=== PATIENT | female | born 1980 | race Caucasian/White ===

== ENCOUNTER 2017-06-20 16:29 | Emergency (ER) | payer SELFPAY ==
[2017-06-20] MEDS ORDERED: HYDROmorphone 1 MG/ML Syringe IVPUSH ONE (17:23)
[2017-06-20] MEDS ORDERED: Sodium Chloride 0.9% 10 ML Syringe FLUSH PRN (17:23)
[2017-06-20] MEDS ORDERED: Iopamidol 612 MG/ML 100 ML Bottle IVPUSH ONE (17:31)
[2017-06-20] MEDS ORDERED: Sodium Chloride 0.9% 10 ML Syringe FLUSH ONE (17:31)
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
--- NOTE | 2017-06-20 18:18 | CT ---
Head CT Technique: Multiple axial sections through the brain were obtained. Intravenous contrast was not utilized. Comparison: No previous intracranial imaging. Findings: Ventricles along with basal cisterns and sulci over the convexities appear within normal limits for the patient's age. No abnormal parenchymal densities are seen. No evidence of intracranial hemorrhage or mass effect is seen. Bone window settings were reviewed which shows the visualized sinuses to appear clear. No acute calvarial abnormality is seen. Impression: 1. Nothing acute is appreciated on noncontrast head CT exam. Diagnostic code #1
--- NOTE | 2017-06-20 18:22 | CT ---
CT cervical spine Technique: Multiple axial sections were obtained from above C1 inferiorly to the top of T2. Reconstructed sagittal and coronal images were reviewed. Comparison: No previous study. Findings: Mild disc space narrowing is noted at C5-C6. Moderate disc space narrowing is noted at C6-C7. Anterior osteophytes with mild posterior osteophytes are seen at both these levels. Well-corticated bony density is seen off the right posterior arch of C2 which is felt to be normal variant. No fracture is seen within the cervical spine. No bony central or bony neural foraminal stenosis is seen. Slight kyphosis is seen of the cervical spine which is likely due to slight degenerative change. No abnormal subluxation is seen. Minimal degenerative change within the uncovertebral joints is seen at C5-C6 and C6-C7. Impression: 1. Mild degenerative change as noted above. 2. Nothing acute is appreciated on CT study of the cervical spine. Diagnostic code #2
--- NOTE | 2017-06-20 18:27 | CT ---
Addendum: Body of the report on chest CT states that there is a small low-density finding within the right lobe of the liver measuring 7 mm. This is incorrect and the word liver should be replaced by thyroid gland. Also not mentioned in the report on the abdomen is a low density area next to the ligamentum teres fissure within the liver which is most likely due to incidental fat. --- Addendum1 above dictated on [06/22/2017 12:07] by [Buddy Farias Hilton J.] --- --- Addendum1 above signed on [06/22/2017 12:10] by [Buddy Farias, Eleno Felder] --- --- Original report below dictated on [06/20/2017 18:23] by [Buddy Farias Hilton J.] --- --- Original report below signed on [06/20/2017 18:24] by [Buddy Farias Hilton J.] --- CT chest Technique: Multiple axial sections were obtained through the chest. Intravenous contrast was utilized. Comparison: No prior chest imaging. Findings: Small low-density finding is seen within the right lobe of the liver measuring 7 mm. Mediastinum and hilar regions appear within normal limits. No pericardial thickening is seen. Lungs are clear with no abnormal parenchymal densities being seen. No pleural effusions or pneumothorax is identified. Bone window settings were reviewed which shows no discrete osseous abnormality. Impression: 1. Small abnormality within the right lobe of the thyroid gland. Nonemergent thyroid ultrasound could be considered to further evaluate. 2. No additional abnormality is identified on CT study of the chest. Diagnostic code #3 CT abdomen and pelvis Technique: Multiple axial sections were obtained from above the dome of the diaphragm inferiorly through the pubic symphysis. Intravenous contrast was utilized. No oral contrast has been given. Comparison: No previous abdominal imaging. Findings: Liver shows no focal parenchymal abnormality. Spleen appears within normal limits. Low-density lesion is identified with layering calcifications within the left kidney which is felt to be benign. This finding measures about 3.3 cm in size. Kidneys otherwise appear within normal limits. Adrenal glands show no nodule. Pancreas is within normal limits. Aorta shows no aneurysmal dilatation. No retroperitoneal adenopathy or mesenteric abnormalities are seen. No pelvic mass or adenopathy is seen. Delayed images were obtained through the abdomen and pelvis which shows contrast excretion into the ureters and bladder. No extravasation of contrast is identified. No free fluid or inflammatory change is identified. Appendix is seen which is normal. Bone window settings were reviewed which shows disc space narrowing at L5-S1. No acute bony abnormality is seen. Impression: 1. Findings which are felt to be incidental as described above. No acute abnormality is appreciated on CT study of the abdomen and pelvis. Diagnostic code #2 --- Addendum1 signed ---
[2017-06-20] MEDS ORDERED: Ketorolac 30 MG/ML SDV IVPUSH ONE (19:50)
[2017-06-20] MEDS ORDERED: Acetaminophen/oxyCODONE 325-5 MG Tab PO PRN (19:55)
[2017-06-20] MEDS ORDERED: Nicotine 21 MG/24 Hr Patch TRDERM ONE (22:54)
--- NOTE | 2017-06-21 11:30 | CR ---
Left knee: AP and lateral views of the left knee were obtained as well as bilateral sunrise patellar views. Both patellofemoral joints appear within normal limits. No joint effusion is seen on the left side. Medial and lateral joint compartments are maintained in height. No acute fracture or other abnormality is seen. Impression: 1. No abnormality is identified on left knee exam. Diagnostic code #1
--- NOTE | 2017-06-21 11:30 | CR ---
Right knee: AP and lateral views of the right knee were obtained. No joint effusion is seen. Medial and lateral joint compartments are maintained in height. No fracture or other abnormality is seen. Small area of cortical thickening seen within the posterior proximal right tibia believed to be benign. Impression: 1. Incidental finding. Nothing acute is seen. Diagnostic code #2
== END 2017-06-20 21:24 | disposition home or self-care (01) ==
LOC: JD.ED 16:29 → EEVIPCON 16:29 → JD.ED 21:22
DX: S80.01XA Contusion of right knee, initial encounter (principal); S80.12XA Contusion of left lower leg, initial encounter; S40.022A Contusion of left upper arm, initial encounter; S40.021A Contusion of right upper arm, initial encounter; S00.83XA Contusion of other part of head, initial encounter; S80.212A Abrasion, left knee, initial encounter; S00.511A Abrasion of lip, initial encounter; R10.32 Left lower quadrant pain; F17.210 Nicotine dependence, cigarettes, uncomplicated; Y04.0XXA Assault by unarmed brawl or fight, initial encounter
CPT/HCPCS: 36415; 70450; 71260; 72125; 73562; 74177; 80053; 80306; 81001; 84703; 85025; 96374; 96375; 99285; G0480; J1170; J1885; J7050; Q9967; 99284

== ENCOUNTER 2017-06-20 22:58 | Observation (INO) | payer SELFPAY ==
[2017-06-20] MEDS ORDERED: Nicotine 21 MG/24 Hr Patch TRDERM ONE (22:59)
[2017-06-20] MEDS ORDERED: Sodium Chloride 0.9% 10 ML Syringe FLUSH PRN (23:01)
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
[2017-06-20] MEDS: LORazepam 2 MG/ML SDV IVPUSH PRN (23:36)
[2017-06-20] MEDS: Ketorolac 30 MG/ML SDV IVPUSH PRN (23:38)
[2017-06-21] MEDS: Ondansetron 4 MG/2 ML SDV IVPUSH PRN ×2 (03:04→17:05)
[2017-06-21] MEDS: Ketorolac 30 MG/ML SDV IVPUSH PRN (05:20)
[2017-06-21] MEDS ORDERED: Morphine 2 MG/ML Syringe IVPUSH ONE (08:48)
[2017-06-21] MEDS ORDERED: Morphine 2 MG/ML Syringe ONE (08:59)
[2017-06-21] MEDS ORDERED: Pneumococcal Polyvalent-23 Vaccine 0.5 ML SDV SUBCUT ONE (09:00)
[2017-06-21] MEDS ORDERED: FLU Vacc QS 2017-18 (6mos UP)/PF 60 MCG/0.5 ML Syringe IM ONE (10:00)
[2017-06-21] MEDS: Ketorolac 30 MG/ML SDV IVPUSH SCH ×3 (11:49→23:52)
[2017-06-21] MEDS: LORazepam 2 MG/ML SDV IVPUSH PRN ×2 (12:07→21:24)
[2017-06-21] MEDS: Acetaminophen/HYDROcodone 325-5 MG Tab PO PRN ×2 (13:12→21:16)
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
[2017-06-21] MEDS: Acetaminophen/oxyCODONE 325-5 MG Tab PO PRN (23:11)
[2017-06-22] MEDS: Acetaminophen/oxyCODONE 325-5 MG Tab PO PRN ×2 (03:16→08:54)
[2017-06-22] MEDS: LORazepam 2 MG/ML SDV IVPUSH PRN ×2 (03:19→09:35)
[2017-06-22] MEDS: Ketorolac 30 MG/ML SDV IVPUSH SCH ×2 (06:38→12:18)
[2017-06-22] MEDS: Ondansetron 4 MG/2 ML SDV IVPUSH PRN (08:57)
[2017-06-22] MEDS ORDERED: Nicotine 21 MG/24 Hr Patch TRDERM ONE (11:05)
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
== END 2017-06-22 14:23 | disposition other institution (70) ==
LOC: EEVIPCON 22:58 → JD.ED 22:58 → JD.OB 06-21 00:12
PROVIDERS: ADMIT Surgery; ATTEND Surgery
DX: T71.193A Asphyxiation due to mechanical threat to breathing due to other causes, assault, initial encounter (principal); T14.8XXA Other injury of unspecified body region, initial encounter; T76.21XA Adult sexual abuse, suspected, initial encounter; R49.0 Dysphonia; R13.10 Dysphagia, unspecified; R06.00 Dyspnea, unspecified; E28.2 Polycystic ovarian syndrome; F17.210 Nicotine dependence, cigarettes, uncomplicated; Z90.49 Acquired absence of other specified parts of digestive tract; Z90.711 Acquired absence of uterus with remaining cervical stump; Z98.890 Other specified postprocedural states; Y04.8XXA Assault by other bodily force, initial encounter
CPT/HCPCS: 93005; 96374; 96375; 99284; A9270; J1885; J2060; J2270; J2405; J7050; 90686; 90732; 96376; 99217; 99219; G0008; G0009; G0378

== ENCOUNTER 2017-06-23 01:37 | Emergency (ER) | payer SELFPAY ==
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
== END 2017-06-23 02:42 ==
LOC: JD.ED 01:37
DX: F10.120 Alcohol abuse with intoxication, uncomplicated (principal); F17.210 Nicotine dependence, cigarettes, uncomplicated; Z79.899 Other long term (current) drug therapy
CPT/HCPCS: 99284